=== PATIENT | female | born 1975 | race Caucasian/White ===

== ENCOUNTER → 2017-02-10 | Outpatient (REF) | payer OTHER | LOC: M SFHCLERA 14:43 | PROVIDERS: ATTEND Nurse Practitioner Family | DX: J02.9 Acute pharyngitis, unspecified (principal) ==

== ENCOUNTER → 2018-02-14 | Outpatient (CLI) | payer OTHER | LOC: M LRY 09:40 | DX: S99.912A Unspecified injury of left ankle, initial encounter (principal); M79.89 Other specified soft tissue disorders; X58.XXXA Exposure to other specified factors, initial encounter; Y92.9 Unspecified place or not applicable | CPT/HCPCS: 73610 ==

== ENCOUNTER → 2018-12-16 | Outpatient (REF) | payer OTHER ==
[2018-12-16 20:25] LABS: HCG, SERUM QUALITATIVE NEGATIVE (NEGATIVE)
== END ==
LOC: M SFHCLERA 15:24
PROVIDERS: ATTEND Family Medicine
DX: Z30.42 Encounter for surveillance of injectable contraceptive (principal)

== ENCOUNTER → 2020-11-25 | Outpatient (CLI) | payer OTHER, SELFPAY, MEDICAID ==
--- NOTE | 2020-11-25 09:32 | REP ---
INDICATION: PAIN Status post arthroplasty. COMPARISON: None. TECHNIQUE: Frontal view of the pelvis with neutral and frog-lateral views of the right hip. FINDINGS: Pelvis is normal. Hip joints appear relatively symmetric with minimal age-related changes including subtle increased sclerosis to the acetabular roof with mild joint space narrowing. No further arthritic changes are appreciated. Surrounding soft tissues are normal. IMPRESSION: Mild age-related changes. <Electronically signed by Gilberto Bauer > 11/25/20 0928
== END ==
LOC: M SOG 09:01
PROVIDERS: ATTEND Orthopaedic Surgery Adult Reconstructive Orthopaedic Surgery
DX: M25.551 Pain in right hip (principal)

== ENCOUNTER → 2021-06-29 | Outpatient (CLI) | payer OTHER ==
[2021-06-29 11:38] LABS: BASO # 0.1 10^3/uL (0.0-0.2); BASO % 0.7 % (0.0-1.0); EOS # 0.2 10^3/uL (0.0-0.5); EOS % 1.8 % (0.0-3.0); HEMATOCRIT 44.3 % (36.0-47.0); HEMOGLOBIN 14.7 g/dl (12.0-15.5); LYMPH # 3.8 10^3/uL (1.5-5.0); LYMPH % 45.7 % (24.0-44.0); MEAN CORPUSCULAR HEMOGLOBIN 30.4 pg (27.0-33.0); MEAN CORPUSCULAR HGB CONC 33.2 g/dl (32.0-36.5); MEAN CORPUSCULAR VOLUME 91.7 fl (80.0-96.0); MONO # 0.6 10^3/uL (0.0-0.8); MONO % 7.1 % (2.0-8.0); NEUTROPHILS # 3.7 10^3/uL (1.5-8.5); NEUTROPHILS % 44.2 % (36.0-66.0); PLATELET COUNT, AUTOMATED 478 10^3/uL (150-450); RED BLOOD COUNT 4.83 10^6/uL (4.00-5.40); WHITE BLOOD COUNT 8.4 10^3/uL (4.0-10.0)
[2021-06-29 12:08] LABS: ALT/SGPT 22 U/L (12-78); BILIRUBIN,TOTAL 0.5 MG/DL (0.2-1.0); BLOOD UREA NITROGEN 12 MG/DL (7-18); CALCIUM LEVEL 9.4 MG/DL (8.5-10.1); CARBON DIOXIDE LEVEL 29 MEQ/L (21-32); CHLORIDE LEVEL 106 MEQ/L (98-107); CHOLESTEROL LEVEL 179 MG/DL (<200); CHOLESTEROL RISK RATIO 4.162 (<5); CREATININE FOR GFR 0.84 MG/DL (0.55-1.30); GLOMERULAR FILTRATION RATE > 60.0 (>58); GLUCOSE, FASTING 86 MG/DL (70-100); HDL CHOLESTEROL 43 MG/DL (>40); LDL CHOLESTEROL 121 MG/DL (<100); NON-HDL-C 136 MG/DL; POTASSIUM SERUM 4.6 MEQ/L (3.5-5.1); SODIUM LEVEL 139 MEQ/L (136-145); TOTAL PROTEIN 7.1 GM/DL (6.4-8.2); TRIGLYCERIDES LEVEL 74 MG/DL (<150)
== END ==
LOC: M WUC 09:16
PROVIDERS: ATTEND Nurse Practitioner Family
DX: Z00.00 Encounter for general adult medical examination without abnormal findings (principal)

== ENCOUNTER → 2021-11-20 | Outpatient (REF) | payer OTHER ==
[2021-11-21 14:56] LABS: GC DNA AMPLIFICATION NEGATIVE (NEGATIVE)
== END ==
LOC: M SFHCLERA 11:15
PROVIDERS: ATTEND Nurse Practitioner Family
DX: N89.8 Other specified noninflammatory disorders of vagina (principal)

== ENCOUNTER → 2022-05-02 | Outpatient (CLI) | payer OTHER | LOC: M WUC 14:58 | PROVIDERS: ATTEND Student in an Organized Health Care Education/Training Program | DX: M25.78 Osteophyte, vertebrae (principal); M51.36 Other intervertebral disc degeneration, lumbar region; M54.2 Cervicalgia ==

== ENCOUNTER → 2024-01-11 | Outpatient (CLI) | payer OTHER ==
[2024-01-11 10:28] LABS: ALBUMIN 3.8 G/DL (3.2-5.2); ALKALINE PHOSPHATASE 70 U/L (46-116); ALT/SGPT 20 U/L (7.0-40); AST/SGOT < 8 U/L (<34); BLOOD UREA NITROGEN 7 MG/DL (9-23); CALCIUM LEVEL 9.7 MG/DL (8.5-10.1); CARBON DIOXIDE LEVEL 31 MMOL/L (20-31); CHLORIDE LEVEL 104 MMOL/L (98-107); CHOLESTEROL LEVEL 189 MG/DL (<200); CREATININE FOR GFR 0.74 MG/DL (0.55-1.30); GLOMERULAR FILTRATION RATE > 60.0 (>58); GLUCOSE, FASTING 90 MG/DL (60-100); LDL CHOLESTEROL 125.6 MG/DL (<100); SODIUM LEVEL 139 MMOL/L (136-145); TOTAL PROTEIN 6.7 G/DL (5.7-8.2); TRIGLYCERIDES LEVEL 107 MG/DL (<150)
== END ==
LOC: M LAB 08:57
PROVIDERS: ATTEND Family Medicine
DX: E78.5 Hyperlipidemia, unspecified (principal)

== ENCOUNTER → 2024-07-15 | Outpatient (REF) | payer OTHER ==
[2024-07-15 17:54] LABS: Trichomonas vaginalis (AMP) POSITIVE (NEGATIVE)
[2024-07-15 18:25] LABS: GC DNA AMPLIFICATION NEGATIVE (NEGATIVE)
== END ==
LOC: M SFHCLERA 16:37
PROVIDERS: ATTEND Family Medicine
DX: N89.8 Other specified noninflammatory disorders of vagina (principal)